=== PATIENT | female | born 1985 | race American Indian/Alaskan Native ===

== ENCOUNTER 2021-12-26 05:53 | Inpatient (IN) | payer BC ==
[2021-12-25 10:42] LABS: Mean Corpuscular HGB Conc 30 % (30-34); Mean Corpuscular Volume 78 fl (79-97); Platelet Count 456 K/mm3 (140-440); Red Blood Count 4.44 M/mm3 (3.65-5.03)
[2021-12-25 10:43] LABS: Hematocrit 34.5 % (30.3-42.9); Hemoglobin 10.4 gm/dl (10.1-14.3); Red Cell Distribution Width 37.5 % (13.2-15.2)
--- NOTE | 2021-12-25 10:52 | Anesthesia Consultation ---
Anesthesia Consult and Med Hx Date of service: 12/26/21 - Airway Anesthetic Teeth Evaluation: Good ROM Head & Neck: Adequate Mental/Hyoid Distance: Adequate Mallampati Class: Class II Intubation Access Assessment: Good - Pre-Operative Health Status ASA Pre-Surgery Classification: ASA2 Proposed Anesthetic Plan: General Nerve Block: TAP - Pulmonary Hx Smoking: No Hx Sleep Apnea: No (FAMILIA PRE SCREEN LOW RISK) - Cardiovascular System Hx Hypertension: Yes (RECENT DX- ON MEDS X 3 WEEKS) - Central Nervous System Hx Psychiatric Problems: No - Gastrointestinal Hx Gastroesophageal Reflux Disease: Yes - Hematic Hx Anemia: Yes (Recent Hgb 3 and received PRBCs) Hx Sickle Cell Disease: No - Other Systems Hx Cancer: No Hx Obesity: Yes
[2021-12-25 11:14] LABS: Blood Urea Nitrogen 10 mg/dL (7-17); Calcium 9.5 mg/dL (8.4-10.2); Hemolysis Index 18
[2021-12-25 11:15] LABS: BUN/Creatinine Ratio 17
[2021-12-26] MEDS ORDERED: MIDAZOLAM 2 MG/2 ML INJ IV NR (06:00)
[2021-12-26] MEDS ORDERED: MAGNESIUM OXIDE 400 MG TAB PO NR (06:00)
[2021-12-26] MEDS ORDERED: ACETAMINOPHEN 500 MG TAB PO NR (06:00)
[2021-12-26] MEDS ORDERED: CELECOXIB 200 MG CAP PO NR (06:00)
[2021-12-26] MEDS ORDERED: fentaNYL 100 MCG/2 ML INJ IV NR (06:00)
[2021-12-26] MEDS ORDERED: LACTATED RINGERS 1,000 ML IV SCH (06:00)
[2021-12-26] MEDS ORDERED: ACETAMINOPHEN 325 MG/10.15 ML ORAL LIQD UNIT DOSE ONE (06:39)
[2021-12-26] MEDS ORDERED: ACETAMINOPHEN 325 MG/10.15 ML ORAL LIQD UNIT DOSE PO NR (06:40)
[2021-12-26] MEDS ORDERED: VASOPRESSIN 20 UNIT/1 ML INJ ONE ×2 (07:20→09:03)
[2021-12-26] MEDS ORDERED: SODIUM CHLORIDE 0.9% 100 ML ONE (07:20)
--- NOTE | 2021-12-26 07:22 | History and Physical Report ---
History of Present Illness Date of examination: 12/26/21 Date of admission: 12/26/2021 Chief complaint: uterine fibroids History of present illness: 36y/o G0 with a history of multiple uterine fibroids. The patient reports having heavy menses and pelvic pressure. She desires to conceive in the future. Past History Past Medical History: hypertension, other (anemia; uterine fibroids) Past Surgical History: other (Uterine fibroid embolization) Social history: - Obstetrical History : 0 Para: 0 Medications and Allergies Allergies Allergy/AdvReac Type Severity Reaction Status Date / Time amoxicillin Allergy Hives Verified 12/19/21 16:28 Home Medications Medication Instructions Recorded Confirmed Last Taken Type Esomeprazole Magnesium [Nexium 20 mg PO DAILY 12/19/21 12/19/21 Unknown History 24Hr] Ferrous Sulfate [Feosol] 325 mg PO QDAY 12/19/21 12/19/21 Unknown History Chlorthalidone [Thalitone] 25 mg PO QDAY 12/25/21 12/25/21 Unknown History labetaloL [Labetalol 200mg TAB] 200 mg PO BID 12/25/21 12/25/21 Unknown History Active Meds: Active Medications Acetaminophen (Acetaminophen 500 Mg Tab) 1,000 mg PO ONCE NR Stop: 12/26/21 23:59 Celecoxib (Celecoxib 200 Mg Cap) 400 mg PO PREOP NR Stop: 12/26/21 23:59 Fentanyl (Fentanyl 100 Mcg/2 Ml Inj) 100 mcg IV ONCE NR Stop: 12/26/21 23:59 Lactated Ringer's (Lactated Ringers) 1,000 mls @ 125 mls/hr IV DIRECT CHRISS Stop: 12/26/21 23:59 Magnesium Oxide (Magnesium Oxide 400 Mg Tab) 400 mg PO ONCE NR Stop: 12/26/21 23:59 Methocarbamol (Methocarbamol 750 Mg Tab) 1,500 mg PO ONCE NR Stop: 12/26/21 23:59 Midazolam HCl (Midazolam 2 Mg/2 Ml Inj) 2 mg IV PREOP NR Stop: 12/26/21 23:59 Review of Systems Constitutional: fatigue Genitourinary: vaginal bleeding - Vital Signs Vital signs: Vital Signs Temp Pulse Resp BP Pulse Ox 98.8 F 68 16 141/92 96 12/25/21 09:35 12/25/21 09:35 12/25/21 09:35 12/25/21 09:35 12/25/21 09:35 Temp Pulse Resp BP Pulse Ox 98.8 F 68 16 141/92 96 12/25/21 09:35 12/25/21 09:35 12/25/21 09:35 12/25/21 09:35 12/25/21 09:35 - Physical Exam Breasts: Positive: deferred Cardiovascular: Regular rate Lungs: Positive: Clear to auscultation Abdomen: Positive: mass Genitourinary (Female): Positive: normal external genitalia Results Result Diagrams: 12/25/21 09:45 12/25/21 09:45 Abnormal lab results 12/25/21 Range/Units 09:45 MCV 78 L (79-97) fl MCH 24 L (28-32) pg RDW 37.5 H (13.2-15.2) % Plt Count 456 H (140-440) K/mm3 All other labs normal. Assessment and Plan - Patient Problems (1) Uterine fibroid Current Visit: Yes Status: Acute Plan to address problem: will proceed with a myomectomy (2) Menorrhagia Current Visit: Yes Status: Acute (3) Chronic anemia Current Visit: Yes Status: Acute
[2021-12-26] MEDS ORDERED: dexAMETHasone 4 MG/ML VIAL ONE (07:23)
[2021-12-26] MEDS ORDERED: BUPIVACAINE/PF (0.25%) 2.5 MG/ML 30 ML VIAL INFILTRATI ONE (07:23)
[2021-12-26] MEDS ORDERED: HYDROmorphone 0.5 MG/0.5 ML INJ IV PRN ×2 (07:25)
[2021-12-26] MEDS ORDERED: ONDANSETRON 4 MG/2 ML INJ IV PRN ×2 (07:25→12:00)
--- NOTE | 2021-12-26 07:25 | Anesthesia Day of Surgery ---
Anesthesia Day of Surgery - Day of Surgery Patient Examined: Yes Patient H&P Reviewed: Yes Patient is NPO: Yes
[2021-12-26] MEDS ORDERED: LIDOCAINE MPF (2%) 20 MG/1 ML VIAL 5 ML ONE (07:39)
[2021-12-26] MEDS ORDERED: ONDANSETRON 4 MG/2 ML INJ ONE (07:39)
[2021-12-26] MEDS ORDERED: HYDROmorphone 1 MG/1 ML INJ ONE (07:39)
[2021-12-26] MEDS ORDERED: ePHEDrine SULFATE 50 MG/1 ML INJ ONE ×3 (07:40→12:40)
[2021-12-26] MEDS ORDERED: propofoL 200 MG/20 ML VIAL IV ONE (07:40)
[2021-12-26] MEDS ORDERED: GENTAMICIN/NS 80 MG/100 ML 100 ML IV NR (08:00)
[2021-12-26] MEDS ORDERED: GENTAMICIN 80 MG in SODIUM CHLORIDE 0.9% 100 ML IV NR (08:00)
[2021-12-26] MEDS ORDERED: ANTICOAGULANT SOD CITRATE SOLUTION MC ONE ×4 (08:24→09:23)
[2021-12-26] MEDS ORDERED: VASOPRESSIN 20 UNIT/1 ML INJ IM ONE (08:54)
[2021-12-26] MEDS ORDERED: SODIUM CHLORIDE 0.9% 100 ML IVPB IV ONE (08:55)
[2021-12-26] MEDS ORDERED: SODIUM CHLORIDE 0.9% IRR 1,500 ML BOTTLE IR ONE (08:55)
[2021-12-26] MEDS ORDERED: SUGAMMADEX SODIUM 200 MG/2 ML VIAL IV ONE (09:55)
[2021-12-26] MEDS ORDERED: IBUPROFEN 800 MG TAB PO PRN (10:22)
--- NOTE | 2021-12-26 10:35 | Operative Report ---
Operative Report Operative Report: Date of procedure: December 26, 2021 Pre-operative diagnosis: Symptomatic uterine fibroids; chronic anemia; m enorrhagia Post-operative diagnosis: Same as above Procedure name(s): Exploratory laparotomy; myomectomy Surgeon: Verónica Ocampo M.D. Media Sales Representative: Bambi Glez Estimated blood loss: 1400 mL Cell Saver replacement: 550 mL IV fluids: 1500 mL Anesthesia: General endotracheal anesthesia Findings Markedly enlarged fibroid uterus with multiple leiomyomas. Normal tubes and ovaries bilaterally Indication: 36-year-old G0 with a history of symptomatic uterine fibroids. The patient has multiple leiomyoma and has had significant menorrhagia that has contributed to her anemia. Procedure The patient was taken to the operating room. A timeout was performed to verify the patient's identity and the procedure. She was placed under general endotracheal anesthesia without complication. The patient was prepped and draped in a normal sterile fashion. A Pfannenstiel skin incision was made down to layer the fascia which was nicked in the midline and extended laterally with the Bovie cautery. Superior aspect of the rectus fascia was grasped with [place] clamps x2 and the rectus muscle off sharply. This was done in inferior fashion as well. The rectus muscle in the midline and the peritoneum entered bluntly. General survey of the abdomen and pelvis revealed uterus 3 to 4 fingerbreadths above the umbilicus. Multiple uterine leiomyomas were identified. The uterus was elevated out of the pelvis. Pitressin was injected into the serosa. In a sequential fashion incision was made through the serosa with the Bovie cautery. The leiomyoma was grasped with a penetrating towel clamp. The leiomyoma was then excised with the Bovie cautery using sharp and blunt dissection. Because of the large number of uterine fibroids incisions on the serosa were made anteriorly fundally and posteriorly. Of note there was noted to be entry into the endometrial cavity with removal of one of the leiomyomas. Once the leiomyoma was removed the myometrial defect was closed in a running locked fashion with 0 Vicryl. Multiple layers of closure of the myometrium were performed. The serosa was then closed with 2-0 Vicryl in a running locked fashion. At the conclusion of the case 24 leiomyomas have been removed. The patient also demonstrated evidence of suspected adenomyosis. The posterior cul-de-sac was then copiously irrigated. The uterus was replaced back into the abdomen and pelvis with the gutters were then irrigated. The surgical sites appeared hemostatic. The peritoneum was reapproximated incorporating the rectus muscle with 3-0 Vicryl in a running fashion. The fascia was closed with 0 Vicryl in a running fashion. The subcutaneous adipose tissue was closed with 3-0 Vicryl in a running fashion. The skin was reapproximated with 4-0 Monocryl in a subcuticular fashion. A dressing was applied to the incision. The patient was extubated successfully and transferred to the [facility]. She was taken to the recovery room in stable condition. All sponge laps and needle counts were correct x2.
[2021-12-26] MEDS ORDERED: OXYTOCIN DRIP 30 UNITS/500 ML BAG IV SCH ×2 (11:00→19:00)
[2021-12-26] MEDS ORDERED: ACETAMINOPHEN 325 MG TAB PO PRN (11:00)
[2021-12-26] MEDS ORDERED: KETOROLAC 30 MG/1 ML INJ IV PRN (11:00)
[2021-12-26] MEDS ORDERED: SODIUM CHLORIDE 0.9% 1000 ML 1,000 ML ONE (11:14)
[2021-12-26 11:36] LABS: Hematocrit 28.7 % (30.3-42.9); Hemoglobin 8.9 gm/dl (10.1-14.3)
[2021-12-26] MEDS ORDERED: ALBUMIN HUMAN 5% (12.5 GM/250 ML) INJ IV ONE (12:00)
[2021-12-26] MEDS ORDERED: MORPHINE 4 MG/1 ML INJ IV PRN (12:00)
[2021-12-26] MEDS ORDERED: ePHEDrine SULFATE 50 MG/1 ML INJ IV SCH (12:30)
[2021-12-26] MEDS ORDERED: SODIUM CHLORIDE 0.9% 500 ML 500 ML IV SCH (13:00)
[2021-12-26] MEDS ORDERED: SODIUM CHLORIDE 0.9% 500 ML 500 ML IV ONE ×2 (13:10→13:44)
[2021-12-26] MEDS ORDERED: LACTATED RINGERS 1,000 ML ONE (13:39)
--- NOTE | 2021-12-26 14:33 | Event Note ---
Date: 12/26/21 Called by PACU nurse for hypotensive episodes. The patient had blood pressures with systolics in the 70s and diastolics in the 30s. Decreasing urine output. While at the patient's bedside abdominal exam was performed by the surgeon. Abdomen remains soft with palpation of the uterus which intraoperatively was still enlarged after the myomectomy. Patient having improvement in blood pressure with aggressive fluid management. 2 units of packed red blood cells and 1 unit of FFP will be given. There is urine in the Mcneil tubing. The patie nt was counseled that an exploratory laparotomy and total abdominal hysterectomy will be performed if her exam worsens. We will continue to closely monitor her hemodynamic status. Continue serial abdominal exams.
--- NOTE | 2021-12-26 16:37 | Post Anesthesia Evaluation ---
- Post Anesthesia Evaluation Patient Participated: Yes Airway Patent: Yes Stable Respiratory Function: Yes Nausea/Vomiting: No Temp > 96.8F: Yes Pain Manageable: Yes Adequeate Hydration: Yes Anesthesia Complications: No Block Receding Appropriately: Not Applicable Patient on Ventilator: No
--- NOTE | 2021-12-26 16:57 | Event Note ---
Date: 12/26/21 The patient continues to remain stable. Her abdominal exam is unchanged her abdomen remains soft. She is currently maintaining her blood pressures and is not tachycardic. Urine output is improved. Patient has received transfusion of blood products. Currently awaiting lab results.
[2021-12-26 17:25] LABS: Hematocrit 27.7 % (30.3-42.9); Mean Corpuscular HGB Conc 32 % (30-34); Mean Corpuscular Volume 81 fl (79-97); Platelet Count 287 K/mm3 (140-440); Red Blood Count 3.42 M/mm3 (3.65-5.03)
[2021-12-26 17:37] LABS: INR 1.1 (0.87-1.13); Partial Thromboplastin Time 30.6 Sec. (24.2-36.6)
[2021-12-26 17:42] LABS: Red Cell Distribution Width 30.4 % (13.2-15.2)
[2021-12-26] MEDS: D5W/LACTATED RINGERS 1,000 ML IV SCH (18:02)
[2021-12-27] MEDS: oxyCODONE /ACETAMINOPHEN 5-325MG TAB PO PRN ×2 (01:12→12:59)
[2021-12-27 05:03] LABS: Hematocrit 23.5 % (30.3-42.9); Hemoglobin 7.5 gm/dl (10.1-14.3)
[2021-12-27] MEDS: D5W/LACTATED RINGERS 1,000 ML IV SCH (05:50)
--- NOTE | 2021-12-27 08:52 | Progress Note ---
Assessment and Plan - Patient Problems (1) Uterine fibroid Current Visit: Yes Status: Acute Plan to address problem: Continue to monitor hemodynamic status Routine postoperative care Advance diet as tolerated Consider discharge home tomorrow if patient remains stable (2) Menorrhagia Current Visit: Yes Status: Acute (3) Chronic anemia Current Visit: Yes Status: Acute Subjective - Subjective Date of service: 12/27/21 Interval history: The patient is postoperative day 1 status post an extensive myomectomy with removal of multiple leiomyomas. Her postoperative course was concerning for unstable hemodynamic status with hypotension and tachycardia while in the recovery room. The patient was transfused 2 units packed red blood cells and fresh frozen plasma with stabilization of her vital signs. This a.m. she is t olerating clear diet and reports that her pain is well controlled. Her vital signs have remained stable. Patient reports: appetite normal, pain well controlled Objective - Vital Signs Latest vital signs: Vital Signs Temp Pulse Resp BP BP Pulse Ox 12/27/21 05:19 98.4 F 89 16 118/75 12/27/21 01:18 97.6 F 103 H 18 103/58 94 12/26/21 22:00 98 12/26/21 20:58 98 12/26/21 20:07 98.0 F 95 H 16 102/64 94 12/26/21 18:25 98 12/26/21 17:30 97.8 F 88 16 98/58 99 12/26/21 17:25 97.8 F 88 16 98/52 99 12/26/21 17:05 98.0 F 89 18 105/61 96 12/26/21 16:55 90 19 103/53 98 12/26/21 16:40 90 20 102/68 100 12/26/21 16:25 97.6 F 88 16 99/59 100 12/26/21 16:10 87 19 108/73 100 12/26/21 15:55 88 20 114/76 100 12/26/21 15:40 82 16 108/72 99 12/26/21 15:25 97.8 F 93 H 19 90/58 98 12/26/21 15:10 92 H 20 98/63 99 12/26/21 15:00 92 H 20 95/64 100 12/26/21 14:50 92 H 20 100/68 100 12/26/21 14:40 94 H 19 103/71 100 12/26/21 14:30 89 16 102/68 100 12/26/21 14:25 97.9 F 90 20 99/63 100 12/26/21 14:20 91 H 18 117/67 100 12/26/21 14:15 96 H 20 109/65 100 12/26/21 14:10 94 H 18 103/54 100 12/26/21 14:05 97.6 F 89 13 101/63 100 12/26/21 14:00 90 18 111/73 100 12/26/21 13:55 85 17 108/70 100 12/26/21 13:50 79 12 103/65 100 12/26/21 13:45 86 16 112/64 100 12/26/21 13:43 97.8 F 80 14 112/64 100 12/26/21 13:40 83 12 109/63 100 12/26/21 13:35 90 19 94/59 100 12/26/21 13:30 84 18 99/61 100 12/26/21 13:28 97.6 F 80 16 94/59 100 12/26/21 13:25 97.6 F 80 16 97/59 100 12/26/21 13:20 85 17 97/56 100 12/26/21 13:15 84 15 92/53 100 12/26/21 13:10 82 17 92/47 100 12/26/21 13:05 80 13 73/38 100 12/26/21 13:00 82 18 75/42 100 12/26/21 12:55 86 14 90/40 100 12/26/21 12:50 86 18 85/41 100 12/26/21 12:45 85 17 93/44 100 12/26/21 12:40 82 17 89/50 99 12/26/21 12:35 97.6 F 86 16 86/46 99 12/26/21 12:30 86 17 99/54 100 12/26/21 12:25 88 19 94/54 100 12/26/21 12:20 84 19 88/48 100 12/26/21 12:15 90 20 95/49 100 12/26/21 12:10 82 15 100/51 100 12/26/21 12:05 82 18 91/49 100 12/26/21 12:00 83 18 88/48 100 12/26/21 11:55 89 17 85/48 100 09/07/22 11:50 89 20 88/52 100 12/26/21 11:45 92 H 18 94/54 100 12/26/21 11:40 87 18 99/59 100 12/26/21 11:35 97.7 F 88 19 101/56 100 12/26/21 11:30 87 19 98/60 100 12/26/21 11:25 84 18 98/61 100 12/26/21 11:20 83 16 98/60 100 12/26/21 11:15 90 20 99/58 100 12/26/21 11:10 88 16 89/56 100 12/26/21 11:05 93 H 19 86/51 99 12/26/21 11:00 90 20 94/53 99 12/26/21 10:55 85 17 93/50 99 12/26/21 10:50 86 18 91/45 99 12/26/21 10:45 83 18 91/50 98 12/26/21 10:40 85 15 78/43 96 12/26/21 10:37 98.5 F 90 16 72/38 100 Intake and Output 12/26/21 12/27/21 12/27/21 22:59 06:59 14:59 Intake Total 1761 1000 Output Total 800 Balance 961 1000 Intake: IV 1450 1000 D5lr 1,000 ml @ 125 mls/ 1000 hr IV DIRECT CHRISS Rx#: [id number] Lactated Ringers 1,000 ml 1000 @ 125 mls/hr IV DIRECT CHRISS Rx#:[id number] Blood Product 311 Output: Urine 800 Void 600 Other: Total, Output Amount 600 Voiding Method Indwelling Catheter Weight 88.451 kg - Exam Abdomen: Present: soft, other (Mild distention but soft) Uterus: Present: firm Incision: Present: normal, dry, intact - Labs Labs: Abnormal lab results 12/26/21 12/26/21 12/26/21 Range/Units 06:45 11:06 16:11 WBC 22.2 H (4.5-11.0) K/mm3 RBC 3.42 L (3.65-5.03) M/mm3 Hgb 9.0 L (10.1-14.3) gm/dl Hct 27.7 L (30.3-42.9) % MCH 26 L (28-32) pg RDW 30.4 H (13.2-15.2) % PT (12.2-14.9) Sec. POC Glucose 170 H (70-105) mg/dL Crossmatch See Detail 12/26/21 12/26/21 12/27/21 Range/Units 16:11 Unknown 04:33 WBC (4.5-11.0) K/mm3 RBC (3.65-5.03) M/mm3 Hgb 8.9 L 7.5 L (10.1-14.3) gm/dl Hct 28.7 L 23.5 L (30.3-42.9) % MCH (28-32) pg RDW (13.2-15.2) % PT 15.5 H (12.2-14.9) Sec. POC Glucose (70-105) mg/dL Crossmatch
--- NOTE | 2021-12-28 13:40 | Progress Note ---
Assessment and Plan A: POD#2 s/p ex lap, abdominal myomectomy Acute blood loss anemia s/p 2 units PRBCs, 1 unit FFP Obesity P: Discharge home today we will follow-up as scheduled with Dr. Saint Clarke Subjective - Subjective Date of service: 12/28/21 Principal diagnosis: s/p abdomdminal myomectomy,acute blood loss anemia Interval history: This patient feels well today. She is requesting discharge home. She is passing flatus. And voiding without difficulty. She does report that her expected menses occurred during the hospitalization but notes that it is lead former than it typically is. Patient reports: appetite normal, voiding normally, pain well controlled, flatus, ambulating normally, no bowel movement Objective - Vital Signs Latest vital signs: Vital Signs Temp Pulse Resp BP BP Pulse Ox 12/28/21 11:34 98.9 F 108 H 24 122/74 95 12/28/21 10:45 98 12/28/21 08:27 98.5 F 116 H 20 118/65 100 12/28/21 04:05 99.3 F 116 H 22 120/65 100 12/28/21 00:41 98.4 F 108 H 18 120/68 98 12/27/21 22:00 18 97 12/27/21 20:11 97.8 F 95 H 20 121/65 98 12/27/21 17:04 97.5 F L 87 18 113/63 96 12/27/21 13:59 18 Intake and Output 12/27/21 12/28/21 12/28/21 22:59 06:59 14:59 Intake Total 360 300 120 Output Total 800 700 Balance -440 -400 120 Intake: Oral 120 Intake, Free Water 360 300 Output: Urine 800 700 Void 800 700 Other: Total, Intake Amount 120 Total, Output Amount 800 700 Voiding Method Toilet Toilet # Voids 3 Void 1 1 - Exam Breasts: Present: deferred Abdomen: Present: soft (obese) - Labs Labs: Abnormal lab results 12/26/21 Range/Units 06:45 Crossmatch See Detail
--- NOTE | 2021-12-28 13:41 | Discharge Summary ---
Providers - Providers Date of Admission: 12/26/21 10:21 Date of discharge: 12/28/21 Attending physician: GEOVANNA MARIN Hospitalization Reason for admission: other (Scheduled myomectomy) Procedure: other (Exploratory laparotomy, myomectomy) Procedure details: Please see operative report Discharge diagnosis: other Hospital course: This patient was admitted for exploratory laparotomy with myomectomy which she tolerated well. She developed acute on chronic anemia requiring transfusion of 2 units of packed red blood cells and 1 unit of fresh frozen plasma. She remained clinically stable and met discharge criteria on postoperative day #2. She will follow-up in the office as scheduled with Dr. Saint Clarke. Condition at discharge: Stable Disposition: 01 HOME / SELF CARE / HOMELESS - Discharge Diagnoses (1) Acute on chronic blood loss anemia Status: Acute (2) Chronic anemia Status: Acute (3) Menorrhagia Status: Acute (4) Uterine fibroid Status: Acute Plan - Provider Discharge Summary Activity: routine, no sex for 6 weeks, no heavy lifting 4 weeks, no strenuous exercise Diet: routine Instructions: routine Additional instructions: [] Smoking cessation referral if applicable(refer to patient education folder for contact #) [] Refer to [facility]'s [facility] Booklet Call your doctor immediately for: * Fever > 100.5 * Heavy vaginal bleeding ( >1 pad per hour) * Severe persistent headache * Shortness of breath * Reddened, hot, painful area to leg or breast * Drainage or odor from incision. * Keep incision clean and dry at all times and follow doctor's instructions regarding bathing/showering - Follow up plan Follow up: DR WALTER [Other] - 7 Days GEOVANNA MARIN MD [Staff Physician] - 6 Weeks (Please keep your scheduled appointment with Dr. Marin in 4 weeks)
[2021-12-28 14:34] VITALS: BP 118/79
== END 2021-12-28 14:50 | disposition home or self-care (01) | DRG 742 ==
LOC: OR 05:53 → OB 10:21 → EDSTATUS 11:15
PROVIDERS: ADMIT Obstetrics & Gynecology; ATTEND Obstetrics & Gynecology
PROC: 0UB90ZZ Excision of Uterus, Open Approach (ICD-10-PCS; principal; 2021-12-26)
PROC: 30233K1 Transfusion of Nonautologous Frozen Plasma into Peripheral Vein, Percutaneous Approach (ICD-10-PCS; 2021-12-26)
PROC: 30233N1 Transfusion of Nonautologous Red Blood Cells into Peripheral Vein, Percutaneous Approach (ICD-10-PCS; 2021-12-26)
DX: D25.9 Leiomyoma of uterus, unspecified (principal); D62 Acute posthemorrhagic anemia; N92.0 Excessive and frequent menstruation with regular cycle; Z20.822 Contact with and (suspected) exposure to COVID-19; D64.9 Anemia, unspecified; I10 Essential (primary) hypertension; E66.9 Obesity, unspecified; Z68.32 Body mass index [BMI] 32.0-32.9, adult; Z88.8 Allergy status to other drugs, medicaments and biological substances
CPT/HCPCS: 36415; 64450; 80048; 82962; 84703; 85014; 85018; 85027; 85610; 85730; 86850; 86900; 86901; 86920; 88305; G0378; J3490; J7060; J7502; J1100; J1170; J1580; J1885; J2250; J2405; J2590; J2704; J3010; J7030; J7120; J7121; P9016; P9017; P9045; U0003